=== PATIENT | male | born 1980 | race Two or more races ===

== ENCOUNTER 2024-05-14 20:25 | Inpatient (IN) | payer OTHER ==
[~2024-05-14] VITALS: Ht 170.2 cm; Wt 64.1 kg
[2024-05-14 20:50] VITALS: PULSE 123; O2SAT 0
[2024-05-14] MEDS: levETIRAcetam 1000 mg/100ml 100 ML IV ONE (21:06)
[2024-05-14] MEDS: LORazepam 2MG/ML-1ML VIAL IV ONE (21:06)
[2024-05-14] MEDS: SODIUM CHLORIDE 0.9% 1,000 ML IV ONE (21:07)
[2024-05-14 21:22] LABS: Basophils # (auto) 0.1 10 ^3/uL (0-0.2); Eosinophils # (auto) 0 10 ^3/uL (0-0.8); Eosinophils % (auto) 0.5 % (0.0-7.0); Hemoglobin 9.7 g/dL (13.5-17.5); Lymphocytes # (auto) 0.3 10 ^3/uL (0.4-5.4); Lymphocytes % (auto) 14.5 % (10.0-50.0); Mean Corpuscular Hemoglobin 28.6 pg (28.0-32.0); Mean Corpuscular Hgb Conc. 32.2 g/dL (32.0-36.0); Mean Corpuscular Volume 88.7 fL (80.0-100.0); Monocytes # (auto) 0.3 10 ^3/uL (0-1.3); Monocytes % (auto) 13.4 % (0.0-12.0); Neutrophils # (auto) 1.4 10 ^3/uL (1.6-8.6); Neutrophils % (auto) 65.6 % (37.0-80.0); Nucleated Red Blood Cells % 0.2 %; Red Blood Cells 3.38 10^6/uL (4.5-5.90); Red Cell Distribution Width 17.5 % (11.8-14.3); White Blood Cell 2.1 10^3/uL (4.4-10.8)
[2024-05-14 21:38] LABS: INR 1.48 (0.9-1.15); Partial Thromboplastin Time 26.4 SEC (24.5-34.5); Prothrombin Time 15.2 sec (9.3-11.8)
[2024-05-14 21:39] LABS: Alanine Aminotransferase 55 U/L (7-40); Albumin 4.2 g/dL (3.2-4.8); Alkaline Phosphatase 160 U/L (46-116); Anion Gap 25 (5-15); Aspartate Aminotransferase 167 U/L (13-40); Bilirubin, Total 3.7 mg/dL (0.2-1.0); Blood Alcohol 24.4 mg/dL (<10); Calcium 8.9 mg/dL (8.7-10.4); Carbon Dioxide 12 mmol/L (20-30); Chloride 98 mmol/L (98-107); Glucose 122 mg/dL (74-106); Potassium 2.8 mmol/L (3.5-5.1); Sodium 135 mmol/L (136-145)
[2024-05-14 21:40] LABS: BUN/Creatinine Ratio 8.8 (10.0-20.0); Blood Urea Nitrogen < 5 mg/dL (9-23); Total Protein 8.3 g/dL (5.7-8.2)
[2024-05-14 22:21] LABS: Platelet Estimate Decreased
[2024-05-14] MEDS ORDERED: NITROGLYCERIN 0.4 MG SL TAB SL PRN (23:30)
[2024-05-14] MEDS ORDERED: MORPHINE SULFATE INJ 2 MG/ml SYRG IV PRN (23:30)
[2024-05-14] MEDS ORDERED: ONDANSETRON HCL 4 MG/2 ML VIAL IV PRN (23:30)
[2024-05-14 23:31] LABS: Base Excess 0.9 mmol/L (-2.0-2.0)
[2024-05-15] VITALS (8 sets, daily range): BP systolic 115–125; BP diastolic 73–84; PULSE 92–117; RESP 18; TEMP 98.2–98.6; O2SAT 0–99
[2024-05-15] MEDS: POTASSIUM CHL 20 Meq TABLET PO ONE (00:18)
[2024-05-15] MEDS: SODIUM CHLORIDE 0.9% 1,000 ML IV SCH (00:21)
[2024-05-15 04:20] LABS: Basophils # (auto) 0.1 10 ^3/uL (0-0.2); Basophils % (auto) 3.5 % (0.0-2.0); Eosinophils # (auto) 0 10 ^3/uL (0-0.8); Eosinophils % (auto) 0.9 % (0.0-7.0); Hematocrit 29.7 % (41.0-53.0); Hemoglobin 9.8 g/dL (13.5-17.5); Lymphocytes # (auto) 0.5 10 ^3/uL (0.4-5.4); Lymphocytes % (auto) 20.1 % (10.0-50.0); Mean Corpuscular Hemoglobin 29.1 pg (28.0-32.0); Mean Corpuscular Hgb Conc. 33.1 g/dL (32.0-36.0); Mean Corpuscular Volume 88.1 fL (80.0-100.0); Monocytes # (auto) 0.4 10 ^3/uL (0-1.3); Monocytes % (auto) 17.1 % (0.0-12.0); Neutrophils # (auto) 1.3 10 ^3/uL (1.6-8.6); Neutrophils % (auto) 58.4 % (37.0-80.0); Nucleated Red Blood Cells % 0.5 %; Red Blood Cells 3.36 10^6/uL (4.5-5.90); Red Cell Distribution Width 17.1 % (11.8-14.3); White Blood Cell 2.2 10^3/uL (4.4-10.8)
[2024-05-15 04:36] LABS: Alanine Aminotransferase 51 U/L (7-40); Alkaline Phosphatase 148 U/L (46-116); Anion Gap 11 (5-15); Aspartate Aminotransferase 145 U/L (13-40); BUN/Creatinine Ratio 9.3 (10.0-20.0); Bilirubin, Total 4.1 mg/dL (0.2-1.0); Blood Urea Nitrogen < 5 mg/dL (9-23); Calcium 8.6 mg/dL (8.7-10.4); Carbon Dioxide 23 mmol/L (20-30); Chloride 98 mmol/L (98-107); Glucose 91 mg/dL (74-106); Potassium 3.1 mmol/L (3.5-5.1); Sodium 132 mmol/L (136-145)
[2024-05-15 04:37] LABS: Total Protein 7.8 g/dL (5.7-8.2)
[2024-05-15] MEDS: GABAPENTIN 300 MG CAP PO SCH (06:41)
[2024-05-15] MEDS: ZINC SULFATE 220mg CAP or TAB PO SCH (09:54)
[2024-05-15] MEDS: MULTIPLE VITAMIN TAB PO SCH (09:54)
[2024-05-15] MEDS: ASCORBIC ACID 500 MG TAB PO SCH (09:54)
[2024-05-15] MEDS: levETIRAcetam 1000 mg/100ml 100 ML IV SCH (09:54)
[2024-05-15] MEDS ORDERED: LORazepam 2MG/ML-1ML VIAL IV PRN (10:15)
[2024-05-15] MEDS: THIAMINE 100mg/ml INJ (200mg/2ml VIAL) IV STA (10:26)
[2024-05-15 13:08] LABS: Amphetamine Screen, Urine Neg (NEGATIVE); Barbiturate Scree,Urine Neg (NEGATIVE); Benzodiazephine Screen, Urine Neg (NEGATIVE); Cannabinoid Screen, Urine Neg (NEGATIVE); Cocaine Screen, Urine Neg (NEGATIVE); Opiate Scree,Urine Neg (NEGATIVE); Phencyclidine Screen, Urine Neg (NEGATIVE)
[2024-05-15 13:14] LABS: Urine Bacteria FEW /hpf (None Seen); Urine Blood Negative /uL (Negative); Urine Clarity Clear (Clear); Urine Color Yellow (Yellow); Urine Protein, UAD Negative (Negative); Urine Specific Gravity 1.011 (1.001-1.035); Urine Urobilinogen OVER mg/dL (Negative); Urine WBC 10 /hpf (0 - 3)
[2024-05-15] MEDS: POTASSIUM CHL 20MEQ/100ML 100 ML IV SCH (17:20)
[2024-05-15] MEDS: QUEtiapine FUMARATE 25 MG TAB PO SCH (21:45)
[2024-05-16] MEDS: LORazepam 2MG/ML-1ML VIAL IV PRN (01:22)
[2024-05-16] MEDS: MORPHINE SULFATE INJ 2 MG/ml SYRG IV PRN (02:36)
[2024-05-16 08:00] VITALS: PULSE 125; PULSE 126; RESP 18; O2SAT 98
[2024-05-16 08:53] VITALS: BP 103/62; PULSE 126; RESP 18; TEMP 98.3; O2SAT 97
[2024-05-16 13:00] VITALS: BP 100/59; PULSE 113; RESP 18; O2SAT 96
[2024-05-16] MEDS: chlordiazePOXIDE HCL 25 MG CAP PO PRN (14:17)
[2024-05-16] MEDS: QUEtiapine FUMARATE 25 MG TAB PO SCH (14:20)
[2024-05-16 17:00] VITALS: BP 106/74; PULSE 144; RESP 18; TEMP 98; O2SAT 97
[2024-05-16 20:00] VITALS: PULSE 118; PULSE 122; RESP 20; O2SAT 98
[2024-05-16] MEDS: FOLIC ACID 1 MG, MULTIPLE VITAMIN 10 ML, MAGNESIUM SULF SDV 50% 8 MEQ, THIAMINE INJ 100... INJ SCH (21:59)
[2024-05-16 22:00] VITALS: BP 108/78; PULSE 134; RESP 22; TEMP 98; O2SAT 98
[2024-05-17 01:00] VITALS: BP 110/76; PULSE 144; RESP 20; TEMP 98.1; O2SAT 98
[2024-05-17 05:09] VITALS: BP 110/78; PULSE 138; RESP 20; TEMP 98.1; O2SAT 98
[2024-05-17 08:00] VITALS: PULSE 119; PULSE 123; O2SAT 98
[2024-05-17 13:00] VITALS: BP 126/80; PULSE 126; RESP 20; TEMP 98.7; O2SAT 95
[2024-05-17 17:16] VITALS: BP 109/76; PULSE 110; RESP 21; TEMP 98; O2SAT 98
[2024-05-17 20:00] VITALS: PULSE 109
[2024-05-18] VITALS (9 sets, daily range): BP systolic 105–132; BP diastolic 67–79; PULSE 94–120; RESP 18–21; TEMP 98.2–98.6; O2SAT 98–100
[2024-05-18 09:20] LABS: Hepatitis B Core Total AB Negative (Negative)
[2024-05-18 10:33] LABS: Hepatitis A Total Antibody Positive (Negative); Hepatitis B Surface Antibody Positive (Negative); Hepatitis B Surface Antigen Negative (Negative); Hepatitis C Antibody Negative (Negative)
[2024-05-19] VITALS (7 sets, daily range): BP systolic 109–125; BP diastolic 69–90; PULSE 76–101; RESP 17–19; TEMP 98–98.7; O2SAT 98–99
[2024-05-19] MEDS: LACTULOSE 20Gm/30ML SOLN PO SCH (16:36)
[2024-05-19 16:49] LABS: Hematocrit 29.3 % (41.0-53.0); Hemoglobin 9.8 g/dL (13.5-17.5)
[2024-05-19 16:51] LABS: Mean Corpuscular Hemoglobin 29.3 pg (28.0-32.0); Mean Corpuscular Hgb Conc. 33.3 g/dL (32.0-36.0); Mean Corpuscular Volume 87.9 fL (80.0-100.0); Red Blood Cells 3.34 10^6/uL (4.5-5.90); Red Cell Distribution Width 18.1 % (11.8-14.3); White Blood Cell 2.3 10^3/uL (4.4-10.8)
[2024-05-19 16:59] LABS: Basophils % (manual) 0 (0.0-2.0); Blast Cells 0; Metamyelocytes % 0; Myelocytes % 0; Promyelocytes % 0; Reactive Lymphocytes 0
[2024-05-19 17:38] LABS: Chloride 106 mmol/L (98-107); Potassium 2.7 mmol/L (3.5-5.1)
[2024-05-19 17:41] LABS: Anion Gap 11 (5-15); Calcium 8.5 mg/dL (8.7-10.4); Carbon Dioxide 21 mmol/L (20-30)
[2024-05-19 17:46] LABS: Glucose 106 mg/dL (74-106)
[2024-05-19 17:47] LABS: Magnesium 1.3 mg/dL (1.6-2.6)
[2024-05-19 18:38] LABS: Sodium 138 mmol/L (136-145)
[2024-05-19 18:39] LABS: BUN/Creatinine Ratio 11.6 (10.0-20.0); Blood Urea Nitrogen < 5 mg/dL (9-23)
[2024-05-19 18:46] LABS: Band Neutrophils % (manual) 2; Eosinophils % (manual) 2 (0-7); Lymphocytes % (manual) 23 (10.0-50.0); Monocytes % (manual) 3 (0-12)
[2024-05-19 18:47] LABS: Platelet Estimate Decreased
[2024-05-20] VITALS (9 sets, daily range): BP systolic 104–128; BP diastolic 62–82; PULSE 81–101; RESP 15–20; TEMP 97.8–99; O2SAT 94–100
[2024-05-20 13:50] LABS: Anion Gap 10 (5-15); Carbon Dioxide 21 mmol/L (20-30); Chloride 104 mmol/L (98-107); Potassium 2.6 mmol/L (3.5-5.1); Sodium 135 mmol/L (136-145)
[2024-05-20 13:56] LABS: BUN/Creatinine Ratio 9.4 (10.0-20.0); Blood Urea Nitrogen < 5 mg/dL (9-23); Glucose 110 mg/dL (74-106); Magnesium 1.4 mg/dL (1.6-2.6)
[2024-05-20] MEDS: MAGNESIUM SULFATE 1GM/100ML 100 ML IV SCH (18:00)
[2024-05-20] MEDS: POTASSIUM CHL 20MEQ/100ML 100 ML IV SCH (18:18)
[2024-05-20] MEDS: POTASSIUM CHL 20 Meq TABLET PO ONE (18:19)
[2024-05-21] VITALS (7 sets, daily range): BP systolic 124–147; BP diastolic 61–81; PULSE 81–99; RESP 16–21; TEMP 98–98.6; O2SAT 94–100
[2024-05-21] MEDS ORDERED: MAGNESIUM SULFATE 1GM/100ML 100 ML IV SCH (01:00)
[2024-05-21] MEDS: POTASSIUM CHL 20MEQ/100ML 100 ML IV SCH (01:04)
[2024-05-21] MEDS: MAGNESIUM SULFATE 1GM/100ML 100 ML IV SCH (05:14)
[2024-05-21 07:08] LABS: Hematocrit 31.5 % (41.0-53.0); Hemoglobin 10.2 g/dL (13.5-17.5); Mean Corpuscular Hemoglobin 29.2 pg (28.0-32.0); Mean Corpuscular Hgb Conc. 32.3 g/dL (32.0-36.0); Mean Corpuscular Volume 90.3 fL (80.0-100.0); Red Blood Cells 3.49 10^6/uL (4.5-5.90); Red Cell Distribution Width 18.1 % (11.8-14.3); White Blood Cell 3.1 10^3/uL (4.4-10.8)
[2024-05-21 07:26] LABS: Basophils % (manual) 0 (0.0-2.0); Blast Cells 0; Metamyelocytes % 0; Myelocytes % 0; Promyelocytes % 0; Reactive Lymphocytes 0
[2024-05-21 07:30] LABS: Alanine Aminotransferase 69 U/L (7-40); Albumin 3.7 g/dL (3.2-4.8); Alkaline Phosphatase 168 U/L (46-116); Anion Gap 10 (5-15); Aspartate Aminotransferase 146 U/L (13-40); Carbon Dioxide 18 mmol/L (20-30); Chloride 109 mmol/L (98-107); Glucose 97 mg/dL (74-106); Magnesium 2.1 mg/dL (1.6-2.6); Phosphorus 1.5 mg/dL (2.4-5.1); Potassium 3.5 mmol/L (3.5-5.1); Sodium 137 mmol/L (136-145)
[2024-05-21 07:31] LABS: Bilirubin, Total 4.8 mg/dL (0.2-1.0); Total Protein 7.6 g/dL (5.7-8.2)
[2024-05-21 07:35] LABS: Blood Urea Nitrogen < 5 mg/dL (9-23)
[2024-05-21 08:24] LABS: Eosinophils % (manual) 6 (0-7); Monocytes % (manual) 25 (0-12)
[2024-05-21 08:25] LABS: Band Neutrophils % (manual) 4; Lymphocytes % (manual) 31 (10.0-50.0)
[2024-05-21 08:26] LABS: Anisocytosis Slight; Platelet Estimate Decreased
[2024-05-21] MEDS: POTASSIUM PHOSPHATE 26.4 MEQ in SODIUM CHL 0.9% 100 ML IV ONE (15:24)
[2024-05-22 05:00] VITALS: BP 98/61; PULSE 86; RESP 20; TEMP 98.5; O2SAT 98
[2024-05-22 07:30] VITALS: PULSE 80; PULSE 86; RESP 16; O2SAT 100
[2024-05-22 09:00] VITALS: BP 132/80; PULSE 86; RESP 16; TEMP 98.2; O2SAT 100
[2024-05-22 13:00] VITALS: BP 123/60; PULSE 94; RESP 17; TEMP 98.6; O2SAT 97
[2024-05-22] MEDS ORDERED: CHL25C PO ×2 (15:58→17:21)
[2024-05-22] MEDS ORDERED: URSO1TAB7 PO (16:13)
[2024-05-22 17:00] VITALS: BP_SYST 120; BP_SYST 130; BP_DIAS 71; BP_DIAS 82; PULSE 101; PULSE 80; RESP 17; TEMP 98.2; TEMP 98.5; O2SAT 98
[2024-05-22] MEDS: HYDROCORTONE 1% TOPICAL CREAM 30 GM TUBE TOP SCH (17:25)
== END 2024-05-22 18:30 | DRG 816 ==
LOC: EDBD 20:25 → ER 20:25 → TELE 23:32 → TELE-WESTW 05-15 13:11
PROVIDERS: ADMIT Internal Medicine; ATTEND Internal Medicine
DX: T51.0X1A Toxic effect of ethanol, accidental (unintentional), initial encounter (principal); G92.9 Unspecified toxic encephalopathy; K76.82 Hepatic encephalopathy; G40.409 Other generalized epilepsy and epileptic syndromes, not intractable, without status epilepticus; D63.8 Anemia in other chronic diseases classified elsewhere; D69.6 Thrombocytopenia, unspecified; E87.4 Mixed disorder of acid-base balance; K76.6 Portal hypertension; E86.0 Dehydration; E87.6 Hypokalemia; F10.229 Alcohol dependence with intoxication, unspecified; F10.239 Alcohol dependence with withdrawal, unspecified; K70.10 Alcoholic hepatitis without ascites; K70.30 Alcoholic cirrhosis of liver without ascites; Z81.1 Family history of alcohol abuse and dependence; Z79.899 Other long term (current) drug therapy; Y90.1 Blood alcohol level of 20-39 mg/100 ml; Y92.9 Unspecified place or not applicable
CPT/HCPCS: 36415; 36600; 70450; 70551; 71045; 74176; 80048; 80053; 80307; 80320; 81001; 82140; 82805; 83735; 83880; 84100; 84484; 85007; 85025; 85027; 85610; 85730; 86704; 86706; 86708; 86803; 87340; 93005; 93971; 95819; 96361; 96365; 96375; 99291; G0378; J3480